=== PATIENT | male | born 1985 | race Caucasian/White ===

== ENCOUNTER 2018-09-11 16:48 | Inpatient (IN) | payer MEDICAID, OTHER, SELFPAY ==
[~2018-09-11] VITALS: Ht 170.2 cm; Wt 99.0 kg
[2018-09-11] MEDS ORDERED: SODIUM CHLORIDE FLUSH 10ML SYR IVF ONE (17:30)
[2018-09-11] MEDS ORDERED: ACETAMINOPHEN 325 MG TABLET PO ONE (17:30)
[2018-09-11 18:05] LABS: BASOPHILS # (AUTO) 0.01 x10^3/uL (0-0.1); BASOPHILS % (AUTO) 0 % (0-1); EOSINOPHILS # (AUTO) 0.05 x10^3/uL (0-0.4); EOSINOPHILS % (AUTO) 1 % (1-7); LYMPHOCYTES # (AUTO) 0.51 x10^3/uL (1-3.4); LYMPHOCYTES % (AUTO) 6 % (22-44); MD NO; MEAN CORPUSCULAR HEMOGLOBIN 31.8 pg (27.5-34.5); MEAN CORPUSCULAR HGB CONC 35.2 g/dL (33.2-36.2); MEAN CORPUSCULAR VOLUME 90.5 fL (81-97); MEAN PLATELET VOLUME 8.1 fL (7.4-10.4); MONOCYTES # (AUTO) 0.89 x10^3/uL (0.2-0.8); MONOCYTES % (AUTO) 10 % (2-9); NEUTROPHILS # (AUTO) 7.54 x10^3/uL (1.8-6.8); NEUTROPHILS % (AUTO) 84 % (42-75); PLATELET COUNT 225 x10^3/uL (130-400); RED BLOOD COUNT 5.05 x10^6/uL (4.38-5.82); RED CELL DISTRIBUTION WIDTH 12.7 % (9.4-14.8)
[2018-09-11 18:09] LABS: ALANINE AMINOTRANSFERASE 50 U/L (12-78); ALBUMIN 4.3 g/dL (3.4-5.0); ANION GAP 10 mmol/L (5-15); CHLORIDE 102 mmol/L (98-107); CREATININE 1.13 mg/dL (0.7-1.3)
[2018-09-11 18:11] LABS: ALKALINE PHOSPHATASE 81 U/L (45-117); BILIRUBIN,TOTAL 0.9 mg/dL (0.2-1.0)
--- NOTE | 2018-09-11 18:25 | NUR ---
pt to room from lobby
[2018-09-11] MEDS ORDERED: ACETAMINOPHEN 325 MG TABLET ONE (18:43)
[2018-09-11] MEDS ORDERED: ONDANSETRON ODT 4 MG PO ONE (19:00)
[2018-09-11 19:09] LABS: MICROSCOPIC AUTO
[2018-09-11 19:11] LABS: CULTURE INDICATED? NO
[2018-09-11 19:20] LABS: RAPID INFLUENZA A POSITIVE (Negative); RAPID INFLUENZA B Negative (Negative)
[2018-09-11] MEDS ORDERED: ONDANSETRON ODT 4 MG ONE (19:21)
[2018-09-11] MEDS ORDERED: IBUPROFEN 600 MG TABLET ONE (19:21)
--- NOTE | 2018-09-11 19:24 | NUR ---
TEMP 102.6, PT MEDICATED PER EMAR WITH ZOFRAN 4MG AND MOTRIN 600MG PO.
[2018-09-11] MEDS ORDERED: IBUPROFEN 200 MG TABLET PO ONE (19:30)
[2018-09-11] MEDS ORDERED: SODIUM CHLORIDE 0.9% 1,000ML IVBOLUS ONE (19:30)
--- NOTE | 2018-09-11 19:57 | NUR ---
PIV STARTED 20G LEFT AC AND IV FLUIDS STARTED.
[2018-09-11] MEDS ORDERED: ACETAMINOPHEN 325 MG TABLET PO PRN (20:30)
[2018-09-11] MEDS ORDERED: BISACODYL 10 MG SUPP PR PRN (20:30)
[2018-09-11] MEDS ORDERED: POLYETHYLENE GLYCOL 17 GM PACKET PO PRN (20:30)
[2018-09-11] MEDS ORDERED: ONDANSETRON ODT 4 MG PO PRN (20:30)
[2018-09-11] MEDS ORDERED: OSELTAMIVIR 75 MG CAPSULE ONE (20:51)
[2018-09-11] MEDS: OSELTAMIVIR 75 MG CAPSULE PO SCH (20:53)
--- NOTE | 2018-09-11 21:51 | NUR ---
REPORT GIVEN TO PASCUAL BADILLO. PT BEING ADMITTED TO ROOM 464
[2018-09-11 22:21] VITALS: BP 122/71
[2018-09-11] MEDS: NS + 20MEQ KCL 1,000 ML IV SCH (23:26)
[2018-09-12 02:00] VITALS: BP 125/70
[2018-09-12 05:48] LABS: BASOPHILS % (AUTO) 0 % (0-1); EOSINOPHILS # (AUTO) 0.04 x10^3/uL (0-0.4); EOSINOPHILS % (AUTO) 1 % (1-7); LYMPHOCYTES % (AUTO) 13 % (22-44); MD NO; MEAN CORPUSCULAR HEMOGLOBIN 31.6 pg (27.5-34.5); MEAN CORPUSCULAR HGB CONC 34.5 g/dL (33.2-36.2); MEAN CORPUSCULAR VOLUME 91.6 fL (81-97); MEAN PLATELET VOLUME 8.2 fL (7.4-10.4); MONOCYTES # (AUTO) 1.01 x10^3/uL (0.2-0.8); MONOCYTES % (AUTO) 15 % (2-9); NEUTROPHILS # (AUTO) 4.86 x10^3/uL (1.8-6.8); NEUTROPHILS % (AUTO) 71 % (42-75); PLATELET COUNT 173 x10^3/uL (130-400); RED BLOOD COUNT 4.51 x10^6/uL (4.38-5.82); RED CELL DISTRIBUTION WIDTH 12.9 % (9.4-14.8)
[2018-09-12 05:55] LABS: CHLORIDE 108 mmol/L (98-107)
[2018-09-12 05:59] LABS: ALANINE AMINOTRANSFERASE 37 U/L (12-78); ALBUMIN 3.4 g/dL (3.4-5.0); ALKALINE PHOSPHATASE 66 U/L (45-117); ANION GAP 6 mmol/L (5-15); BILIRUBIN,TOTAL 0.6 mg/dL (0.2-1.0); CREATININE 0.92 mg/dL (0.7-1.3); TOTAL PROTEIN 6.5 g/dL (6.4-8.2)
[2018-09-12 06:41] VITALS: BP 128/73
[2018-09-12] MEDS: OSELTAMIVIR 75 MG CAPSULE PO SCH ×2 (08:38→20:34)
[2018-09-12] MEDS: SENNA/DOCUSATE TABLET PO SCH (08:39)
[2018-09-12] MEDS: NS + 20MEQ KCL 1,000 ML IV SCH (08:39)
[2018-09-12 14:36] VITALS: BP 132/76
[2018-09-12] MEDS: CEFTRIAXONE PMX 2GM/50ML 50 ML IV SCH (17:49)
[2018-09-12] MEDS: SODIUM CHLORIDE 0.45% 1,000 ML IV SCH (17:49)
[2018-09-12 18:50] VITALS: BP 144/90
[2018-09-12] MEDS: DOXYCYCLINE 100MG TABLET PO SCH (20:34)
[2018-09-13 00:45] VITALS: BP 116/72
[2018-09-13] MEDS: SODIUM CHLORIDE 0.45% 1,000 ML IV SCH ×3 (03:37→21:16)
[2018-09-13 05:49] LABS: BASOPHILS # (AUTO) 0.02 x10^3/uL (0-0.1); BASOPHILS % (AUTO) 0 % (0-1); EOSINOPHILS # (AUTO) 0.05 x10^3/uL (0-0.4); EOSINOPHILS % (AUTO) 1 % (1-7); LYMPHOCYTES # (AUTO) 1.93 x10^3/uL (1-3.4); LYMPHOCYTES % (AUTO) 37 % (22-44); MD NO; MEAN CORPUSCULAR HEMOGLOBIN 32.1 pg (27.5-34.5); MEAN CORPUSCULAR HGB CONC 35.5 g/dL (33.2-36.2); MEAN CORPUSCULAR VOLUME 90.3 fL (81-97); MEAN PLATELET VOLUME 8.1 fL (7.4-10.4); MONOCYTES # (AUTO) 0.67 x10^3/uL (0.2-0.8); MONOCYTES % (AUTO) 13 % (2-9); NEUTROPHILS % (AUTO) 48 % (42-75); PLATELET COUNT 156 x10^3/uL (130-400); RED BLOOD COUNT 4.42 x10^6/uL (4.38-5.82); RED CELL DISTRIBUTION WIDTH 12.6 % (9.4-14.8)
[2018-09-13 06:00] LABS: ALBUMIN 3.5 g/dL (3.4-5.0); ANION GAP 7 mmol/L (5-15); CALCIUM 8.1 mg/dL (8.5-10.1); CHLORIDE 107 mmol/L (98-107)
[2018-09-13 06:05] LABS: ALANINE AMINOTRANSFERASE 39 U/L (12-78); ALKALINE PHOSPHATASE 63 U/L (45-117); BILIRUBIN,TOTAL 0.5 mg/dL (0.2-1.0); CREATININE 0.87 mg/dL (0.7-1.3); TOTAL PROTEIN 6.6 g/dL (6.4-8.2)
[2018-09-13 07:26] VITALS: BP 133/83
[2018-09-13] MEDS: OSELTAMIVIR 75 MG CAPSULE PO SCH ×2 (08:05→21:16)
[2018-09-13] MEDS: SENNA/DOCUSATE TABLET PO SCH (08:05)
[2018-09-13] MEDS: DOXYCYCLINE 100MG TABLET PO SCH ×2 (08:05→21:16)
[2018-09-13 12:40] VITALS: BP 122/86
[2018-09-13] MEDS: CEFTRIAXONE PMX 2GM/50ML 50 ML IV SCH (17:47)
[2018-09-13 21:20] VITALS: BP 108/74
[2018-09-14 01:26] VITALS: BP 114/73
[2018-09-14 05:17] LABS: BASOPHILS % (AUTO) 0 % (0-1); EOSINOPHILS # (AUTO) 0.12 x10^3/uL (0-0.4); EOSINOPHILS % (AUTO) 2 % (1-7); LYMPHOCYTES # (AUTO) 2.36 x10^3/uL (1-3.4); LYMPHOCYTES % (AUTO) 43 % (22-44); MD NO; MEAN CORPUSCULAR HEMOGLOBIN 31.8 pg (27.5-34.5); MEAN CORPUSCULAR VOLUME 91.1 fL (81-97); MEAN PLATELET VOLUME 8.2 fL (7.4-10.4); MONOCYTES # (AUTO) 0.43 x10^3/uL (0.2-0.8); MONOCYTES % (AUTO) 8 % (2-9); NEUTROPHILS # (AUTO) 2.61 x10^3/uL (1.8-6.8); NEUTROPHILS % (AUTO) 47 % (42-75); PLATELET COUNT 161 x10^3/uL (130-400); RED BLOOD COUNT 4.34 x10^6/uL (4.38-5.82); RED CELL DISTRIBUTION WIDTH 12.8 % (9.4-14.8)
[2018-09-14] MEDS: SODIUM CHLORIDE 0.45% 1,000 ML IV SCH (05:18)
[2018-09-14 05:32] LABS: CHLORIDE 107 mmol/L (98-107)
[2018-09-14 05:47] LABS: ALANINE AMINOTRANSFERASE 39 U/L (12-78); ALBUMIN 3.3 g/dL (3.4-5.0); ALKALINE PHOSPHATASE 67 U/L (45-117); ANION GAP 6 mmol/L (5-15); BILIRUBIN,TOTAL 0.3 mg/dL (0.2-1.0); CALCIUM 8.4 mg/dL (8.5-10.1); CREATININE 0.92 mg/dL (0.7-1.3); TOTAL PROTEIN 6.5 g/dL (6.4-8.2)
[2018-09-14 08:00] VITALS: BP 118/74
[2018-09-14] MEDS: OSELTAMIVIR 75 MG CAPSULE PO SCH (08:36)
[2018-09-14] MEDS: DOXYCYCLINE 100MG TABLET PO SCH (08:36)
[2018-09-14] MEDS ORDERED: AMOXICILLIN/CLAV 875-125MG TABLET PO SCH (09:00)
[2018-09-14] MEDS: SENNA/DOCUSATE TABLET PO SCH (09:00)
[2018-09-14] MEDS ORDERED: OSEL75CA PO (10:44)
[2018-09-14] MEDS ORDERED: DOXY100T PO (10:44)
[2018-09-14] MEDS ORDERED: AMOX1TAB12 PO (10:44)
== END 2018-09-14 12:35 | disposition home or self-care (01) | DRG 871 ==
LOC: ED 20:10 → EDIP 20:29 → 4NOR 22:18
PROVIDERS: ADMIT Internal Medicine; ATTEND Internal Medicine
DX: A41.89 Other specified sepsis (principal); J18.9 Pneumonia, unspecified organism; J10.00 Influenza due to other identified influenza virus with unspecified type of pneumonia; E87.6 Hypokalemia; F31.9 Bipolar disorder, unspecified; F43.10 Post-traumatic stress disorder, unspecified; J31.0 Chronic rhinitis; K52.9 Noninfective gastroenteritis and colitis, unspecified
CPT/HCPCS: 36415; 71045; 71250; 80053; 81001; 83605; 83690; 83735; 84100; 84145; 85025; 87040; 87070; 87205; 87400; 93005; 96360; G0378; J0696; J3480; Q0162; J7030

== ENCOUNTER 2019-05-15 22:23 | Emergency (ER) | payer MEDICAID ==
[~2019-05-15] VITALS: Ht 170.2 cm; Wt 106.8 kg
[~2019-05-15 22:23] MED LIST: AMOX1TAB12 PO; DOXY100T PO; OSEL75CA26 PO
[2019-05-15 22:25] VITALS: BP 142/83
[2019-05-15] MEDS ORDERED: LIDOCAINE-MPF 1%, 5ML INFIL ONE (22:30)
[2019-05-15] MEDS ORDERED: BUPIVACAINE 0.25% INFIL ONE (22:30)
[2019-05-15] MEDS ORDERED: LIDOCAINE-MPF 1%, 5ML ONE (23:38)
[2019-05-15] MEDS ORDERED: BUPIVACAINE 0.25% ONE (23:42)
--- NOTE | 2019-05-16 00:41 | NUR ---
WOUND CLEANED BY RN. SUTURE SET UP AT BEDSIDE.
--- NOTE | 2019-05-16 01:45 | NUR ---
DC EDUCATION PROVIDED, PT DEMONSTRATES UNDERSTANDING. PT AMBULATED STEADILY TO DC. FRIEND TO TRANSPORT PT HOME.
== END 2019-05-16 01:58 | disposition home or self-care (01) ==
LOC: ED 23:44
DX: S61.212A Laceration without foreign body of right middle finger without damage to nail, initial encounter (principal); X58.XXXA Exposure to other specified factors, initial encounter; Y93.89 Activity, other specified; Y92.89 Other specified places as the place of occurrence of the external cause; Y99.8 Other external cause status
CPT/HCPCS: 12001; 64450; 99283; 99284

== ENCOUNTER 2019-07-03 09:13 | Emergency (ER) | payer OTHER, MEDICAID ==
[~2019-07-03] VITALS: Ht 170.2 cm; Wt 110.4 kg
[2019-07-03 09:45] VITALS: BP 120/67
[2019-07-03] MEDS ORDERED: KETOROLAC 30 MG/1 ML IM ONE (10:30)
[2019-07-03] MEDS ORDERED: METHOCARBAMOL 750 MG TABLET PO ONE (10:30)
[2019-07-03] MEDS ORDERED: METHOCARBAMOL 750 MG TABLET ONE (11:04)
[2019-07-03] MEDS ORDERED: KETOROLAC 30 MG/1 ML ONE (11:04)
--- NOTE | 2019-07-03 11:44 | NUR ---
Patient given discharge instructions and they have confirmed that they understand the instructions. Patient ambulatory with steady gait.
== END 2019-07-03 11:45 | disposition home or self-care (01) ==
LOC: ED 11:39
DX: S39.012A Strain of muscle, fascia and tendon of lower back, initial encounter (principal); S29.012A Strain of muscle and tendon of back wall of thorax, initial encounter; X58.XXXA Exposure to other specified factors, initial encounter; Y93.89 Activity, other specified; Y92.89 Other specified places as the place of occurrence of the external cause; Y99.8 Other external cause status
CPT/HCPCS: 72050; 72072; 72110; 96372; 99284; J1885

== ENCOUNTER 2019-11-13 06:05 | Day surgery (SDC) | payer MEDICAID, OTHER ==
[~2019-11-13] VITALS: Ht 170.2 cm; Wt 105.2 kg
[2019-11-13] MEDS ORDERED: FAMOTIDINE 20 MG/2 ML ONE (06:44)
[2019-11-13] MEDS ORDERED: ONDANSETRON 2MG/ML, 2ML ONE ×4 (06:44→14:10)
[2019-11-13] MEDS ORDERED: MAALOX/HYOSCYAMINE/LIDOCAINE 45 ML BTL ONE (06:44)
--- NOTE | 2019-11-13 06:56 | NUR ---
SBAR HAND-0FF REPORT RECEIVED FROM ABY BAUMAN. ASSUMING CARE OF PATIENT.
[2019-11-13] MEDS ORDERED: SODIUM CHLORIDE FLUSH 10ML SYR IVF ONE (07:00)
[2019-11-13] MEDS ORDERED: FAMOTIDINE 20 MG/2 ML IVPush ONE (07:00)
[2019-11-13] MEDS ORDERED: ONDANSETRON 2MG/ML, 2ML IVPush ONE ×3 (07:00→14:30)
[2019-11-13] MEDS ORDERED: MAALOX/HYOSCYAMINE/LIDOCAINE 45 ML BTL PO ONE (07:00)
[2019-11-13 07:34] LABS: BASOPHILS # (AUTO) 0.02 x10^3/uL (0-0.1); BASOPHILS % (AUTO) 0 % (0-1); EOSINOPHILS # (AUTO) 0.18 x10^3/uL (0-0.4); EOSINOPHILS % (AUTO) 2 % (1-7); LYMPHOCYTES # (AUTO) 2.36 x10^3/uL (1-3.4); LYMPHOCYTES % (AUTO) 27 % (22-44); MD NO; MEAN CORPUSCULAR HEMOGLOBIN 31.3 pg (27.5-34.5); MEAN CORPUSCULAR HGB CONC 33.8 g/dL (33.2-36.2); MEAN CORPUSCULAR VOLUME 92.8 fL (81-97); MEAN PLATELET VOLUME 8.1 fL (7.4-10.4); MONOCYTES # (AUTO) 0.54 x10^3/uL (0.2-0.8); MONOCYTES % (AUTO) 6 % (2-9); NEUTROPHILS # (AUTO) 5.79 x10^3/uL (1.8-6.8); NEUTROPHILS % (AUTO) 65 % (42-75); PLATELET COUNT 196 x10^3/uL (130-400); RED BLOOD COUNT 4.74 x10^6/uL (4.38-5.82); RED CELL DISTRIBUTION WIDTH 13.3 % (9.4-14.8)
[2019-11-13 07:44] LABS: ALANINE AMINOTRANSFERASE 49 U/L (12-78); ALBUMIN 3.7 g/dL (3.4-5.0); ANION GAP 6 mmol/L (5-15); CALCIUM 8.9 mg/dL (8.5-10.1); CHLORIDE 110 mmol/L (98-107); CREATININE 1.12 mg/dL (0.7-1.3)
[2019-11-13 07:48] LABS: ALKALINE PHOSPHATASE 51 U/L (45-117); BILIRUBIN,TOTAL 0.4 mg/dL (0.2-1.0); TROPONIN I < 0.015 ng/mL (0.000-0.045)
[2019-11-13] MEDS ORDERED: CEFOTETAN PMX 2GM/50ML 50 ML IV ONE (09:00)
--- NOTE | 2019-11-13 09:34 | NUR ---
CEFOTETAN STARTED. ZOFRAN GIVEN FOR NAUSEA. PT RESTING WITH NO COMPLAINTS. CALL BUTTON IN LAP.
--- NOTE | 2019-11-13 10:58 | NUR ---
COVID-19 SWAB COLLECTED AND SENT TO LAB.
--- NOTE | 2019-11-13 10:59 | NUR ---
RAPID COVID-19 SWAB COLLECTED FROM LEFT NARE AND WALKED TO LAB.
--- NOTE | 2019-11-13 11:00 | NUR ---
ATTEMPTED TO CALL REPORT. RN TO CALL BACK.
--- NOTE | 2019-11-13 11:26 | NUR ---
SBAR TELEPHONE HAND-OFF REPORT GIVEN TO ABY GTZ TO SEND FOR PATIENT AFTER COVID-19 TEST RESULTED.
[2019-11-13] MEDS ORDERED: NEOSTIGMINE 1 MG/ML, 10ML ONE (11:58)
[2019-11-13] MEDS ORDERED: MIDAZOLAM 1 MG/ML, 2ML ONE (11:58)
[2019-11-13] MEDS ORDERED: FENTANYL PF 100 MCG/2ML ONE ×4 (11:58→14:10)
[2019-11-13] MEDS ORDERED: ROCURONIUM 10MG/ML,5ML ONE (11:58)
[2019-11-13] MEDS ORDERED: GLYCOPYRROLATE 0.2MG/1ML, 5ML ONE (11:58)
[2019-11-13] MEDS ORDERED: DEXAMETHASONE 4 MG/ML, 1ML ONE (11:58)
[2019-11-13] MEDS ORDERED: SUCCINYLCHOLINE 20 MG/ML, 10ML ONE (11:58)
[2019-11-13] MEDS ORDERED: PROPOFOL 10 MG/ML, 20ML ONE (11:58)
[2019-11-13] MEDS ORDERED: CEFAZOLIN 1,000 MG ONE (11:58)
[2019-11-13] MEDS ORDERED: CHLORHEXIDINE 15 ML UDC MM ONE (12:00)
[2019-11-13 12:02] VITALS: BP 118/79
[2019-11-13] MEDS ORDERED: CHLORHEXIDINE 15 ML UDC ONE (12:16)
[2019-11-13] MEDS ORDERED: VALP250C59 PO (12:23)
[2019-11-13] MEDS ORDERED: PARO30TA3 PO (12:23)
[2019-11-13] MEDS ORDERED: TRAZ150T62 PO (12:23)
[2019-11-13] MEDS ORDERED: FENO67CA PO (12:23)
[2019-11-13] MEDS ORDERED: [UNRECOGNIZED DRUG - OTHER] PO (12:23)
[2019-11-13] MEDS ORDERED: FENTANYL PF 100 MCG/2ML IV PRN (12:30)
[2019-11-13] MEDS ORDERED: PROMETHAZINE 25 MG/ML, 1ML IVPush PRN (12:30)
[2019-11-13] MEDS ORDERED: MEPERIDINE/PF 25MG/0.5ML IVPush PRN (12:30)
[2019-11-13] MEDS ORDERED: OXYcodone 5 MG/5 ML ORAL.SOL UDC PO PRN (12:30)
[2019-11-13] MEDS ORDERED: KETOROLAC 30 MG/1 ML IVPush PRN (12:30)
[2019-11-13] MEDS ORDERED: HYDROmorphone 1 MG/ML, 1ML INJ IVPush PRN (12:30)
[2019-11-13] MEDS ORDERED: HYDROcodone/APAP 7.5-325MG/15ML UDC PO PRN (12:30)
[2019-11-13] MEDS ORDERED: BUPIVACAINE/PF 0.5% ONE (12:42)
[2019-11-13] MEDS ORDERED: SUGAMMADEX 200 MG/2 ML IVPush ONE (13:17)
[2019-11-13] MEDS ORDERED: hydrALAzine 20 MG/ML, 1ML ONE (13:17)
[2019-11-13] MEDS ORDERED: LABETALOL 5MG/ML, 20ML ONE (14:00)
[2019-11-13] MEDS ORDERED: MEPERIDINE/PF 25MG/ML,1ML ONE (14:10)
[2019-11-13] MEDS ORDERED: HYDROmorphone 2 MG/ML, 1ML ONE (14:11)
[2019-11-13] MEDS ORDERED: LABETALOL 5MG/ML, 20ML IVPush PRN (14:30)
[2019-11-13] MEDS ORDERED: KETOROLAC 30 MG/1 ML ONE (14:37)
[2019-11-13] MEDS ORDERED: ACETAMINOPHEN 650 MG/20.3 ML UDC ONE (14:52)
[2019-11-13] MEDS ORDERED: OXYcodone 5 MG/5 ML ORAL.SOL UDC ONE (14:52)
[2019-11-13] MEDS ORDERED: ACETAMINOPHEN 650 MG/20.3 ML UDC PO PRN (15:00)
[2019-11-13] MEDS ORDERED: DIPHENHYDRAMINE 50 MG/ML, 1ML ONE (15:23)
[2019-11-13] MEDS ORDERED: DIPHENHYDRAMINE 50 MG/ML, 1ML IVPush PRN (15:30)
[2019-11-14] MEDS ORDERED: MORPHINE SULFATE 4 MG/ML, 1ML ONE (06:41)
== END 2019-11-13 12:21 | disposition home or self-care (01) ==
LOC: OR 06:06 → ED 06:33 → INTOOBSV 09:22 → EDIP 09:22 → UNDOADMOB 09:22 → OR 12:21 → EDSTATUS 16:43
PROVIDERS: ATTEND Emergency Medicine
DX: K80.12 Calculus of gallbladder with acute and chronic cholecystitis without obstruction (principal); Z11.59 Encounter for screening for other viral diseases; F31.9 Bipolar disorder, unspecified; E66.9 Obesity, unspecified; Z79.899 Other long term (current) drug therapy
CPT/HCPCS: 36415; 47562; 76700; 80053; 83690; 83880; 84484; 85025; 87635; 88304; 93005; 96365; 96375; 96376; 99285; J0330; J0360; J0690; J1100; J1885; J2175; J2250; J2405; J2704; J2710; J3010; J3490

== ENCOUNTER 2019-11-14 05:02 | Emergency (ER) | payer MEDICAID ==
[~2019-11-14] VITALS: Ht 170.2 cm; Wt 103.9 kg
[~2019-11-14 05:02] MED LIST changes: +FENO67CA PO; +PARO30TA3 PO; +TRAZ150T62 PO; +VALP250C59 PO; +[UNRECOGNIZED DRUG - OTHER] PO
--- NOTE | 2019-11-14 05:15 | NUR ---
PT C/O ABD PAIN, AND NAUSEA. HAD PAULINA YESTERDAY. PLACED ON VITALS SIGNS MONITORS. SAFETY FALL PRECAUTIONS IN PLACE AND CALL LIGHT WITHIN REACH.
[2019-11-14] MEDS ORDERED: FAMOTIDINE 20 MG/2 ML ONE (05:18)
[2019-11-14] MEDS ORDERED: ONDANSETRON 2MG/ML, 2ML ONE (05:18)
[2019-11-14] MEDS ORDERED: MORPHINE SULFATE 4 MG/ML, 1ML ONE (05:18)
[2019-11-14] MEDS: MORPHINE SULFATE 4 MG/ML, 1ML IVPush PRN ×2 (05:28→06:44)
[2019-11-14] MEDS ORDERED: FAMOTIDINE 20 MG/2 ML IV ONE (05:30)
[2019-11-14] MEDS ORDERED: SODIUM CHLORIDE FLUSH 10ML SYR IVF ONE (05:30)
[2019-11-14] MEDS ORDERED: ONDANSETRON 2MG/ML, 2ML IVPush ONE (05:30)
[2019-11-14 05:57] LABS: ALANINE AMINOTRANSFERASE 101 U/L (12-78); ALBUMIN 4.3 g/dL (3.4-5.0); ANION GAP 7 mmol/L (5-15); CHLORIDE 105 mmol/L (98-107); CREATININE 1.29 mg/dL (0.7-1.3)
[2019-11-14 05:59] LABS: ALKALINE PHOSPHATASE 55 U/L (45-117); BILIRUBIN,TOTAL 0.4 mg/dL (0.2-1.0); TOTAL PROTEIN 8.1 g/dL (6.4-8.2)
[2019-11-14 06:20] LABS: BASOPHILS # (AUTO) 0.03 x10^3/uL (0-0.1); BASOPHILS % (AUTO) 0 % (0-1); EOSINOPHILS % (AUTO) 0 % (1-7); LYMPHOCYTES # (AUTO) 1.55 x10^3/uL (1-3.4); LYMPHOCYTES % (AUTO) 10 % (22-44); MD NO; MEAN CORPUSCULAR HEMOGLOBIN 31.4 pg (27.5-34.5); MEAN CORPUSCULAR HGB CONC 33.7 g/dL (33.2-36.2); MEAN CORPUSCULAR VOLUME 93.2 fL (81-97); MONOCYTES # (AUTO) 0.96 x10^3/uL (0.2-0.8); MONOCYTES % (AUTO) 6 % (2-9); NEUTROPHILS # (AUTO) 12.69 x10^3/uL (1.8-6.8); NEUTROPHILS % (AUTO) 83 % (42-75); PLATELET COUNT 269 x10^3/uL (130-400); RED BLOOD COUNT 4.96 x10^6/uL (4.38-5.82); RED CELL DISTRIBUTION WIDTH 12.6 % (9.4-14.8)
--- NOTE | 2019-11-14 06:57 | NUR ---
REPORT GIVEN TO LUCÍA BADILLO.
--- NOTE | 2019-11-14 06:59 | NUR ---
ASSUMED CARE. REPORT FROM DENISE
--- NOTE | 2019-11-14 07:01 | NUR ---
PT RESTING WITH EYES CLOSED, NO DISTRESS. AWAITING DISPO
[2019-11-14 08:40] VITALS: BP 139/86
--- NOTE | 2019-11-14 08:41 | NUR ---
PT STATES HE IS FEELING BETTER AND THAT THE BLOATING PAIN HAS RESOLVED AT THIS TIME. AWAITING RE-EVAL
--- NOTE | 2019-11-14 09:42 | NUR ---
OFF FLOOR TO CT
[2019-11-14] MEDS ORDERED: OMNIPAQUE 350 MG/ML, 100ML BOTTLE ONE (09:45)
== END 2019-11-14 10:12 | disposition home or self-care (01) ==
LOC: ED 05:18
DX: R10.84 Generalized abdominal pain (principal); R11.2 Nausea with vomiting, unspecified; R19.7 Diarrhea, unspecified; Z90.49 Acquired absence of other specified parts of digestive tract
CPT/HCPCS: 36415; 74177; 76700; 80053; 83690; 85025; 96374; 96375; 96376; 99285; J2270; J2405; J3490; Q9967

== ENCOUNTER 2020-01-24 07:05 | Emergency (ER) | payer MEDICAID ==
[~2020-01-24] VITALS: Ht 170.2 cm; Wt 102.9 kg
--- NOTE | 2020-01-24 08:26 | NUR ---
SPEECH THERAPIST: US SENT TO LAB
[2020-01-24 08:34] LABS: BASOPHILS # (AUTO) 0.03 x10^3/uL (0-0.1); BASOPHILS % (AUTO) 0 % (0-1); EOSINOPHILS # (AUTO) 0.22 x10^3/uL (0-0.4); EOSINOPHILS % (AUTO) 3 % (1-7); LYMPHOCYTES # (AUTO) 2.17 x10^3/uL (1-3.4); LYMPHOCYTES % (AUTO) 30 % (22-44); MD NO; MEAN CORPUSCULAR HEMOGLOBIN 31.7 pg (27.5-34.5); MEAN CORPUSCULAR HGB CONC 33.8 g/dL (33.2-36.2); MEAN CORPUSCULAR VOLUME 93.8 fL (81-97); MEAN PLATELET VOLUME 7.6 fL (7.4-10.4); MONOCYTES # (AUTO) 0.52 x10^3/uL (0.2-0.8); MONOCYTES % (AUTO) 7 % (2-9); NEUTROPHILS # (AUTO) 4.35 x10^3/uL (1.8-6.8); NEUTROPHILS % (AUTO) 60 % (42-75); PLATELET COUNT 238 x10^3/uL (130-400); RED BLOOD COUNT 4.63 x10^6/uL (4.38-5.82); RED CELL DISTRIBUTION WIDTH 12.8 % (9.4-14.8)
[2020-01-24 08:41] LABS: MICROSCOPIC NOT IND
[2020-01-24 08:44] LABS: ALANINE AMINOTRANSFERASE 63 U/L (12-78); ALBUMIN 3.7 g/dL (3.4-5.0); ANION GAP 7 mmol/L (5-15); CALCIUM 8.9 mg/dL (8.5-10.1); CHLORIDE 108 mmol/L (98-107); CREATININE 1.03 mg/dL (0.7-1.3)
[2020-01-24 08:47] LABS: ALKALINE PHOSPHATASE 69 U/L (45-117); BILIRUBIN,TOTAL 0.3 mg/dL (0.2-1.0); TOTAL PROTEIN 7.1 g/dL (6.4-8.2)
--- NOTE | 2020-01-24 08:57 | NUR ---
HITCH TECHNICIAN: PT TO ROOM FROM [facility]
--- NOTE | 2020-01-24 09:02 | NUR ---
PT TO ROOM, REVIEW OF CHART. US PENDING.
[2020-01-24] MEDS ORDERED: ONDANSETRON ODT 8 MG ONE (09:09)
--- NOTE | 2020-01-24 09:20 | NUR ---
PT GIVEN ZOFRAN FOR NAUSEA, PO CHALLENGE STARTED. US AT BS. BP AND PULSE OX PLACED, VSS/UPDATED IN COMPUTER.
[2020-01-24 09:21] VITALS: BP 123/82
[2020-01-24] MEDS ORDERED: ONDANSETRON ODT 8 MG PO ONE (09:30)
[2020-01-24] MEDS ORDERED: MAALOX/HYOSCYAMINE/LIDOCAINE 45 ML BTL PO ONE (11:00)
== END 2020-01-24 11:10 | disposition home or self-care (01) ==
LOC: ED 10:12
DX: R10.11 Right upper quadrant pain (principal); R11.2 Nausea with vomiting, unspecified; Z90.49 Acquired absence of other specified parts of digestive tract; Z79.899 Other long term (current) drug therapy
CPT/HCPCS: 36415; 76700; 80053; 81003; 83690; 85025; 99284; Q0162

== ENCOUNTER 2020-06-26 11:28 | Emergency (ER) | payer MEDICAID ==
[~2020-06-26] VITALS: Ht 170.2 cm; Wt 102.7 kg
--- NOTE | 2020-06-26 12:06 | NUR ---
PT C/O LOWER BACK PAIN AFTER LIFTING A BARREL OF COPPER AT WORK. PT STATES THAT HE FELT A BURNING/PULLING SENSATION IN HIS BACK AND FELT LIKE HE WAS GOING TO PASS OUT. PAIN 9/10. PT FELT NUMBNESS AND TINGLING IN HIS LEFT HAND BUT SENSATION HAS RETURNED. PT DENIES HX OF BACK INJURY.
[2020-06-26] MEDS ORDERED: KETOROLAC 60 MG/2 ML ONE (12:23)
[2020-06-26] MEDS ORDERED: METHOCARBAMOL 750 MG TABLET ONE (12:23)
[2020-06-26] MEDS ORDERED: KETOROLAC 30 MG/1 ML IM ONE (12:30)
[2020-06-26] MEDS ORDERED: METHOCARBAMOL 750 MG TABLET PO ONE (12:30)
[2020-06-26 13:44] VITALS: BP 131/69
--- NOTE | 2020-06-26 14:06 | NUR ---
Patient given discharge instructions and they have confirmed that they understand the instructions. Patient ambulatory with steady gait.
== END 2020-06-26 14:07 | disposition home or self-care (01) ==
LOC: ED 13:50
DX: S39.012A Strain of muscle, fascia and tendon of lower back, initial encounter (principal); M54.6 Pain in thoracic spine; R42 Dizziness and giddiness; X58.XXXA Exposure to other specified factors, initial encounter; Y93.89 Activity, other specified; Y92.89 Other specified places as the place of occurrence of the external cause; Y99.0 Civilian activity done for income or pay
CPT/HCPCS: 72072; 72110; 96372; 99284; J1885

== ENCOUNTER 2020-09-27 23:20 | Emergency (ER) | payer MEDICAID ==
[~2020-09-27] VITALS: Ht 170.2 cm; Wt 102.2 kg
--- NOTE | 2020-09-27 23:30 | NUR ---
PT AMBULATED TO ROOM, DIAPHORETIC AND C/O PAIN TO GENERALIZED ABDOMEN AREA. STATES HES HAD DIARRHEA ALL HIS LIFE, NEVER ANY HARD OR SOFT FORMED STOOL. ALWAYS LIQUID. PT STATES IT WAS WORST AFTER HIS GALL BLADDER WAS TAKEN OUT.
[2020-09-27] MEDS ORDERED: FAMOTIDINE 20 MG/2 ML ONE (23:56)
[2020-09-27] MEDS ORDERED: MAALOX/HYOSCYAMINE/LIDOCAINE 45 ML BTL ONE (23:56)
[2020-09-27] MEDS ORDERED: ONDANSETRON 2MG/ML, 2ML ONE (23:56)
[2020-09-28] MEDS ORDERED: SODIUM CHLORIDE 0.9% 1,000ML IVBOLUS ONE
[2020-09-28] MEDS ORDERED: SODIUM CHLORIDE FLUSH 10ML SYR IVF ONE
[2020-09-28] MEDS ORDERED: FAMOTIDINE 20 MG/2 ML IVPush ONE
[2020-09-28] MEDS ORDERED: MAALOX/HYOSCYAMINE/LIDOCAINE 45 ML BTL PO ONE
--- NOTE | 2020-09-28 | NUR ---
PT UP TO BATHROOM, RIPPED ALL OF HIS LEADS AND CONNECTIONS OFF, AND RUSHED TO THE BATHROOM.
--- NOTE | 2020-09-28 00:23 | NUR ---
PIV STARTED TO LEFT AC X1 ATTEMPT 18G. BLOOD DRAWN AND SENT TO LAB. IVF 1000 ML HUNG TO RUN OVER 1 HOUR. PT MEDICATED PER MD ORDER ON EMAR. PT TOLERATED WELL. LIGHTS TURNED DOWN, BED PABLO FLAT FOR PT REQUEST, AND SIDERAILS UP X2 AND CALL LIGHT WITHIN REACH. PT INSTRUCTED TO CALL THE RN WHEN HE NEEDS TO GET OUT OF THE BED OR USE THE RESTROOM HE IS ON CR MONITOR.
[2020-09-28 00:27] LABS: BASOPHILS % (AUTO) 0 % (0-1); EOSINOPHILS % (AUTO) 1 % (1-7); LYMPHOCYTES % (AUTO) 27 % (22-44); MEAN CORPUSCULAR HEMOGLOBIN 32.3 pg (27.5-34.5); MEAN CORPUSCULAR HGB CONC 35.7 g/dL (33.2-36.2); MEAN PLATELET VOLUME 7.2 fL (7.4-10.4); MONOCYTES % (AUTO) 8 % (2-9); NEUTROPHILS % (AUTO) 64 % (42-75); PLATELET COUNT 261 x10^3/uL (130-400); RED BLOOD COUNT 4.93 x10^6/uL (4.38-5.82); RED CELL DISTRIBUTION WIDTH 12.9 % (9.4-14.8)
[2020-09-28 00:28] LABS: MD NO
--- NOTE | 2020-09-28 00:32 | NUR ---
PT TO XRAY FOR FLAT AND UPRIGHT XRAY. AND THEN BACK TO ROOM. PT WENT TO BATHROOM FIRST AND HAD EMESIS.
[2020-09-28 00:39] LABS: ALBUMIN 4.4 g/dL (3.4-5.0); ANION GAP 6 mmol/L (5-15); CALCIUM 8.8 mg/dL (8.5-10.1); CHLORIDE 105 mmol/L (98-107)
[2020-09-28] MEDS ORDERED: ONDANSETRON 2MG/ML, 2ML ONE (00:42)
[2020-09-28 00:43] LABS: ALANINE AMINOTRANSFERASE 66 U/L (12-78); ALKALINE PHOSPHATASE 80 U/L (45-117); BILIRUBIN,TOTAL 0.6 mg/dL (0.2-1.0)
[2020-09-28 00:45] VITALS: BP 168/92
[2020-09-28] MEDS ORDERED: ONDANSETRON 2MG/ML, 2ML IVPush ONE ×2 (01:00)
== END 2020-09-28 01:26 | disposition home or self-care (01) ==
LOC: ED 09-28 01:20
DX: R10.13 Epigastric pain (principal); R11.2 Nausea with vomiting, unspecified; R10.10 Upper abdominal pain, unspecified; G89.29 Other chronic pain; R19.7 Diarrhea, unspecified; R94.31 Abnormal electrocardiogram [ECG] [EKG]; Z90.49 Acquired absence of other specified parts of digestive tract; Z87.891 Personal history of nicotine dependence
CPT/HCPCS: 36415; 74021; 80053; 83690; 85025; 93005; 96361; 96374; 96375; 96376; 99285; J2405; J7030

== ENCOUNTER 2021-01-02 19:55 | Emergency (ER) | payer MEDICAID ==
[~2021-01-02] VITALS: Ht 170.2 cm; Wt 96.3 kg
[~2021-01-02 19:55] MED LIST changes: -FENO67CA PO; +FENO67CA5 PO
[2021-01-02 21:04] LABS: BASOPHILS % (AUTO) 0 % (0-1); EOSINOPHILS % (AUTO) 3 % (1-7); LYMPHOCYTES % (AUTO) 36 % (22-44); MEAN CORPUSCULAR HEMOGLOBIN 32.4 pg (27.5-34.5); MEAN CORPUSCULAR HGB CONC 35.1 g/dL (33.2-36.2); MEAN PLATELET VOLUME 7.2 fL (7.4-10.4); MONOCYTES % (AUTO) 8 % (2-9); NEUTROPHILS % (AUTO) 52 % (42-75); PLATELET COUNT 271 x10^3/uL (130-400); RED BLOOD COUNT 4.37 x10^6/uL (4.38-5.82); RED CELL DISTRIBUTION WIDTH 13.3 % (9.4-14.8)
[2021-01-02 21:14] LABS: ALBUMIN 3.7 g/dL (3.4-5.0); ANION GAP 4 mmol/L (5-15); CALCIUM 8.9 mg/dL (8.5-10.1); CHLORIDE 107 mmol/L (98-107)
[2021-01-02 21:16] LABS: CREATININE 0.94 mg/dL (0.7-1.3)
[2021-01-02 21:17] LABS: ALANINE AMINOTRANSFERASE 31 U/L (12-78); ALKALINE PHOSPHATASE 72 U/L (45-117); BILIRUBIN,TOTAL 0.5 mg/dL (0.2-1.0); TOTAL PROTEIN 7.6 g/dL (6.4-8.2)
[2021-01-02 21:18] LABS: SALICYLATE LEVEL < 1.7 mg/dL (2.8-20.0)
[2021-01-02] MEDS ORDERED: LORazepam 1MG TABLET ONE (21:37)
[2021-01-02 21:42] LABS: AMPHETAMINE SCREEN, URINE Negative (Negative); BARBITURATE SCREEN, URINE Negative (Negative); BENZODIAZEPINE SCREEN, URINE Negative (Negative); CANNABINOID SCREEN, URINE Positive (Negative); COCAINE SCREEN, URINE Negative (Negative); METHADONE SCREEN, URINE Negative (Negative); OPIATE SCREEN, URINE Negative (Negative)
[2021-01-02] MEDS ORDERED: LORazepam 1MG TABLET PO ONE (22:00)
[2021-01-02] MEDS ORDERED: DIPHENHYDRAMINE 25 MG CAPSULE ONE (22:42)
[2021-01-02] MEDS ORDERED: DIPHENHYDRAMINE 25 MG CAPSULE PO ONE (23:00)
--- NOTE | 2021-01-02 23:00 | NUR ---
pt given some juice per request. medicated per emar. no other needs at this time. in line of sight of sarthakter
--- NOTE | 2021-01-02 23:34 | NUR ---
PT PACKET FAXED TO [facility] TO EVALUATE PT.
--- NOTE | 2021-01-03 00:09 | NUR ---
josé manuel (sister)- ok to give info. [phone]
--- NOTE | 2021-01-03 01:39 | NUR ---
RELIEF RN: SPOKE C SISTER, FREDDY, UPDATED C PLAN OF CARE. SITTER OUTSIDE OF ROOM. WILL CTM.
--- NOTE | 2021-01-03 02:06 | NUR ---
EPORT GIVEN TO ABY DE ANDA
--- NOTE | 2021-01-03 02:09 | NUR ---
Note tayaone in EDM - 01/03/21 at 0210 by [email or web address] Patient is sleepinh comfortably in bed. eyes closed. brweathing even and unlabored. pt is snoring loudly. Bed in lowest, rails engaged, call light on lap. Vital Signs within normal limits. WCTM.
[2021-01-03] MEDS ORDERED: TEMA15CA PO (04:28)
[2021-01-03] MEDS ORDERED: PRAZ2CAP2 PO (04:28)
== END 2021-01-03 02:30 ==
LOC: ED 21:21 → EDIP 23:06 → UNDOADMOB 23:06 → ED 01-03 02:30
DX: F32.9 Major depressive disorder, single episode, unspecified (principal); R45.851 Suicidal ideations; Z20.822 Contact with and (suspected) exposure to COVID-19
CPT/HCPCS: 36415; 80053; 80299; 80307; 80320; 85025; 87426; 99285; Q0163; 80329; G0480

== ENCOUNTER 2021-01-03 01:30 | Inpatient (IN) | payer MEDICAID ==
[~2021-01-03] VITALS: Ht 170.2 cm; Wt 89.5 kg
[2021-01-03] MEDS ORDERED: DOCUSATE 100 MG CAPSULE PO PRN (02:00)
[2021-01-03] MEDS ORDERED: ACETAMINOPHEN 325 MG TABLET PO PRN (02:00)
[2021-01-03] MEDS ORDERED: ONDANSETRON ODT 4 MG PO PRN (02:00)
[2021-01-03] MEDS ORDERED: BISACODYL 10 MG SUPP PR PRN (02:00)
[2021-01-03] MEDS ORDERED: POLYETHYLENE GLYCOL 17 GM PACKET PO PRN (02:00)
[2021-01-03 03:32] VITALS: BP 146/90
[2021-01-03 03:51] LABS: CHOL/HDL RATIO 8.1; FREE T4 (FREE THYROXINE) 0.86 ng/dL (0.76-1.46); LDL/HDL RATIO 4.3 (0.5-3.0)
[2021-01-03] MEDS ORDERED: PRAZ2CAP2 PO (04:28)
[2021-01-03] MEDS ORDERED: TEMA15CA PO (04:28)
[2021-01-03 07:14] VITALS: BP 133/85
[2021-01-03] MEDS ORDERED: HYDROXYZINE PAMOATE 25MG CAP ONE (13:07)
[2021-01-03] MEDS: HYDROXYZINE PAMOATE 50MG CAP PO PRN (13:25)
[2021-01-03] MEDS ORDERED: DOXEPIN 25 MG CAPSULE PO PRN (14:30)
[2021-01-03] MEDS ORDERED: FENOFIBRATE 54 MG TABLET PO SCH (15:00)
[2021-01-03] MEDS: SERTRALINE 50MG TABLET PO SCH (16:06)
[2021-01-03 16:59] LABS: MICROSCOPIC NOT IND
[2021-01-03 19:31] VITALS: BP 131/86
[2021-01-03] MEDS: QUETIAPINE 100MG TABLET PO SCH (20:34)
[2021-01-03] MEDS: FENOFIBRATE 54 MG TABLET PO SCH (20:35)
[2021-01-03] MEDS: PRAZOSIN 1 MG CAPSULE PO SCH (20:35)
[2021-01-04 07:36] VITALS: BP 116/67
[2021-01-04] MEDS: SERTRALINE 50MG TABLET PO SCH (09:14)
[2021-01-04] MEDS: FENOFIBRATE 54 MG TABLET PO SCH (09:14)
[2021-01-04 19:06] VITALS: BP 146/76
[2021-01-04] MEDS: QUETIAPINE 100MG TABLET PO SCH (20:22)
[2021-01-04] MEDS: PRAZOSIN 1 MG CAPSULE PO SCH (20:22)
[2021-01-05 07:52] VITALS: BP 115/77
[2021-01-05] MEDS: SERTRALINE 50MG TABLET PO SCH (09:25)
[2021-01-05] MEDS: FENOFIBRATE 54 MG TABLET PO SCH (09:25)
[2021-01-05] MEDS: HYDROXYZINE PAMOATE 50MG CAP PO PRN (18:31)
[2021-01-05 19:39] VITALS: BP 120/70
[2021-01-05] MEDS: PRAZOSIN 1 MG CAPSULE PO SCH (19:47)
[2021-01-05] MEDS: QUETIAPINE 100MG TABLET PO SCH (19:48)
[2021-01-06 07:49] VITALS: BP 106/69
[2021-01-06] MEDS: FENOFIBRATE 54 MG TABLET PO SCH (08:27)
[2021-01-06] MEDS: SERTRALINE 50MG TABLET PO SCH (08:27)
[2021-01-06] MEDS: HYDROXYZINE PAMOATE 50MG CAP PO PRN (08:31)
[2021-01-06] MEDS ORDERED: PRAZ1CAP2 PO (14:43)
[2021-01-06] MEDS ORDERED: DOXE25CA PO (14:43)
[2021-01-06] MEDS ORDERED: HYDR50CA2 PO (14:43)
[2021-01-06] MEDS ORDERED: QUET100T2 PO (14:43)
[2021-01-06] MEDS ORDERED: SERT50TA28 PO (14:43)
== END 2021-01-06 16:00 | disposition home or self-care (01) | DRG 885 ==
LOC: 3E 02:30
PROVIDERS: ADMIT Psychiatry & Neurology Psychosomatic Medicine; ATTEND Psychiatry & Neurology Psychosomatic Medicine
DX: F31.30 Bipolar disorder, current episode depressed, mild or moderate severity, unspecified (principal); R45.851 Suicidal ideations; E78.1 Pure hyperglyceridemia; F10.21 Alcohol dependence, in remission; F12.10 Cannabis abuse, uncomplicated; F43.10 Post-traumatic stress disorder, unspecified; G47.00 Insomnia, unspecified; Z79.899 Other long term (current) drug therapy; Z90.49 Acquired absence of other specified parts of digestive tract; Y90.9 Presence of alcohol in blood, level not specified
CPT/HCPCS: 36415; 71045; 80053; 80061; 80299; 80307; 80320; 80329; 81003; 82607; 84439; 84443; 85025; 87426; 93005; 99285; G0480; Q0163